=== PATIENT | female | born 1970 | race Caucasian/White ===

== ENCOUNTER 2016-06-06 08:00 | Outpatient (CLI) | payer MEDICAID | END 2016-06-06 23:59 | disposition home or self-care (01) | DX: Z79.891 Long term (current) use of opiate analgesic (principal) ==

== ENCOUNTER 2016-06-11 14:06 | Outpatient (CLI) | payer MEDICAID | END 2016-06-11 14:07 | disposition home or self-care (01) | DX: M19.042 Primary osteoarthritis, left hand (principal); M19.041 Primary osteoarthritis, right hand; M25.532 Pain in left wrist; M25.531 Pain in right wrist ==

== ENCOUNTER 2016-06-12 13:56 | Outpatient (CLI) | payer MEDICAID | END 2016-06-12 13:57 | disposition home or self-care (01) | DX: R20.2 Paresthesia of skin (principal) ==

== ENCOUNTER 2016-09-04 07:58 | Outpatient (CLI) | payer MEDICAID | END 2016-09-04 07:59 | disposition home or self-care (01) | DX: N39.0 Urinary tract infection, site not specified (principal) ==

== ENCOUNTER 2016-09-06 14:11 | Outpatient (CLI) | payer MEDICAID | END 2016-09-06 14:12 | disposition home or self-care (01) | DX: M25.532 Pain in left wrist (principal) ==

== ENCOUNTER 2016-11-28 12:22 | Outpatient (CLI) | payer MEDICAID ==
[2016-11-28 17:36] LABS: BILIRUBIN,URINE NEGATIVE (NEGATIVE)
[2016-11-28 17:42] LABS: WBC,URINE >25 /HPF (0-5)
[2016-11-28 17:43] LABS: UR CULTURE IF IND INDICATED
== END 2016-11-28 12:23 ==
LOC: LAB.R 12:22
PROVIDERS: ATTEND Nurse Practitioner Family
DX: N39.0 Urinary tract infection, site not specified (principal)
CPT/HCPCS: 81001; 87077; 87086

== ENCOUNTER 2016-12-31 14:08 | Outpatient (CLI) | payer MEDICAID ==
[2016-12-31 19:00] LABS: BILIRUBIN,URINE NEGATIVE (NEGATIVE)
[2016-12-31 20:03] LABS: UR CULTURE IF IND NOT INDICATED; WBC,URINE 0-3 /HPF (0-5)
== END 2016-12-31 14:09 | disposition home or self-care (01) ==
LOC: LAB.R 14:08
PROVIDERS: ATTEND Nurse Practitioner Family
DX: N39.0 Urinary tract infection, site not specified (principal)
CPT/HCPCS: 81001; 87086

== ENCOUNTER 2017-01-07 14:02 | Outpatient (CLI) | payer MEDICAID ==
--- NOTE | 2017-01-07 16:04 | XRAY Report ---
THREE VIEW LEFT HAND: 01/07/2017 CLINICAL INDICATION: Pain. FINDINGS: AP, lateral, and oblique views of the left hand are compared to previous films of 06/11/19 17. Mild osteoarthritis in the interphalangeal joints is stable. There is no evidence of acute fracture o r dislocation. No radiopaque foreign body is seen in the soft tissues. IMPRESSION: MILD INTERPHALANGEAL OSTEOARTHRITIS. JOB #: [id number] EXT JOB #:[id number]
--- NOTE | 2017-01-07 16:05 | XRAY Report ---
THREE VIEW LEFT WRIST: 01/07/2017 CLINICAL INDICATION: Osteoarthritis. COMPARISON: 09/06/2016. FINDINGS: AP, lateral, and oblique views of the left wrist demonstrate no evidence of acute fracture or dislocation. The joint spaces are preserved. No radiopaque foreign body is seen in the soft tissu es. IMPRESSION: NORMAL LEFT WRIST, UNCHANGED. JOB #: [id number] EXT JOB #:[id number]
== END 2017-01-07 14:03 | disposition home or self-care (01) ==
LOC: DI.S 14:02
PROVIDERS: ATTEND Nurse Practitioner Family
DX: M19.032 Primary osteoarthritis, left wrist (principal)

== ENCOUNTER 2017-03-07 15:46 | Outpatient (CLI) | payer MEDICAID ==
[2017-03-07 12:47] LABS: BASOPHILS % (AUTO) 0.7 %; EOSINOPHILS # (AUTO) 0.1 10^3/uL (0.0-0.7); EOSINOPHILS % (AUTO) 2.3 %; HGB - HEMOGLOBIN 12.3 g/dL (12.0-16.0); LYMPHOCYTES # (AUTO) 1.6 10^3/uL (1.5-3.5); LYMPHOCYTES % (AUTO) 46.6 %; MEAN CORPUSCULAR HEMOGLOBIN 35.8 pg (27.0-31.0); MEAN CORPUSCULAR HGB CONC 34.1 g/dL (32.0-36.0); MEAN CORPUSCULAR VOLUME 104.9 fL (81.0-99.0); MEAN PLATELET VOLUME 9.6 fL (7.9-10.8); MONOCYTES # (AUTO) 0.3 10^3/uL (0.0-1.0); MONOCYTES % (AUTO) 8.3 %; NEUTROPHILS # (AUTO) 1.5 10^3/uL (1.5-6.6); NEUTROPHILS % (AUTO) 42.1 %; NUCLEATED RED BLOOD CELLS AUTO 0.1 /100WBC; RED BLOOD COUNT 3.43 10^6/uL (4.20-5.40); RED CELL DISTRIBUTION WIDTH 11.8 % (12.0-15.0); UNCORRECTED WHITE BLOOD COUNT 3.5 x10^3/uL; WHITE BLOOD COUNT 3.5 x10^3/uL (4.8-10.8)
[2017-03-07 13:19] LABS: ALBUMIN/GLOBULIN RATIO 1.6 (1.0-2.2); BILIRUBIN,TOTAL 0.4 mg/dL (0.2-1.0); BUN - BLOOD UREA NITROGEN 9 mg/dL (6-20); CALCIUM 8.9 mg/dL (8.5-10.3); CARBON DIOXIDE - CO2 24 mmol/L (21-32); CHLORIDE 108 mmol/L (101-111); CREATININE 0.7 mg/dL (0.4-1.0); GFR - MDRD 89 (>89); GLUCOSE 118 mg/dL (70-100); POTASSIUM 3.2 mmol/L (3.5-5.0); SODIUM 139 mmol/L (135-145); TOTAL PROTEIN 6.6 g/dL (6.7-8.2)
== END 2017-03-07 15:47 | disposition home or self-care (01) ==
LOC: LAB.N 15:46
PROVIDERS: ATTEND Nurse Practitioner Family
DX: I10 Essential (primary) hypertension (principal); R19.7 Diarrhea, unspecified
CPT/HCPCS: 36415; 80053; 84443; 85025

== ENCOUNTER 2017-03-08 10:07 | Outpatient (CLI) | payer MEDICAID ==
[2017-03-08 13:50] LABS: FOLATE 8.96 ng/mL (5.90 - >24.8)
[2017-03-08 13:52] LABS: POTASSIUM 3.1 mmol/L (3.5-5.0)
== END 2017-03-08 10:08 | disposition home or self-care (01) ==
LOC: LAB.N 10:07
PROVIDERS: ATTEND Nurse Practitioner Family
DX: E87.6 Hypokalemia (principal); D53.9 Nutritional anemia, unspecified
CPT/HCPCS: 36415; 82607; 82746; 82977; 84132

== ENCOUNTER 2017-08-29 11:01 | Outpatient (CLI) | payer MEDICAID ==
--- NOTE | 2017-08-29 13:08 | XRAY Report ---
COMPLETE CERVICAL SPINE: 08/29/2017 CLINICAL INDICATION: Neck and back pain. COMPARISON: 10/18/2014. FINDINGS: AP, lateral, oblique, odontoid views of the cervical spine demonstrate normal height and alignment of the vertebral bodies. The disk spaces are preserved. There is no evidence of interval fracture or subluxation. No osseous neural foraminal narrowing is appreciated. IMPRESSION: NORMAL CERVICAL SPINE, UNCHANGED. TD: 08/29/2017 13:07
--- NOTE | 2017-08-29 13:09 | XRAY Report ---
TWO VIEW THORACIC SPINE: 08/29/2017 CLINICAL INDICATION: Back pain. FINDINGS: Frontal and lateral views of the thoracic spine demonstrate mild degenerative disk disease. There is no evidence of compression fracture. No paraspinal hematoma is seen. IMPRESSION: MILD DEGENERATIVE CHANGES, STABLE FROM 03/07/2011. NO EVIDENCE OF COMPRESSION FRACTURE. TD: 08/29/2017 13:08
== END 2017-08-29 11:02 | disposition home or self-care (01) ==
LOC: DI.S 11:01
PROVIDERS: ATTEND Nurse Practitioner Family
DX: M51.34 Other intervertebral disc degeneration, thoracic region (principal)
CPT/HCPCS: 72050; 72070

== ENCOUNTER 2018-07-11 13:52 | Outpatient (CLI) | payer MEDICAID ==
--- NOTE | 2018-07-11 16:30 | XRAY Report ---
Reason: FOREARM PAIN,LEFT,KNEE PAIN,RIGHT,FOOT JOINT PAIN, Procedure Date: 07/11/2018 Accession Number: [id number] / [id number] Procedure: XR - Foot 3 View RT CPT Code: FULL RESULT: EXAM: RIGHT FOOT RADIOGRAPHY EXAM DATE: 07/11/2018 02:19 PM. CLINICAL HISTORY: Foot pain COMPARISON: None. TECHNIQUE: 3 views. FINDINGS: Bones: Normal. No fractures or bone lesions. Joints: Normal. No subluxations. Soft Tissues: Normal. No soft tissue swelling. IMPRESSION: Negative foot radiography. [facility]
--- NOTE | 2018-07-11 16:35 | XRAY Report ---
Reason: FOREARM PAIN,LEFT,KNEE PAIN,RIGHT,FOOT JOINT PAIN, Procedure Date: 07/11/2018 Accession Number: [id number] / [id number] Procedure: XR - Knee 3 View RT CPT Code: FULL RESULT: EXAM: RIGHT KNEE RADIOGRAPHY EXAM DATE: 07/11/2018 01:14 PM. CLINICAL HISTORY: Knee pain COMPARISON: WRIST 3 VIEW LT 11/08/2015 10:23 PM. TECHNIQUE: 3 views. FINDINGS: Bones: Normal. No fractures or bone lesions. Joints: Normal. No effusion. No subluxations. Soft Tissues: Normal. No soft tissue swelling. IMPRESSION: Negative knee radiography. [facility]
--- NOTE | 2018-07-11 17:09 | XRAY Report ---
Reason: FOREARM PAIN,LEFT,KNEE PAIN,RIGHT,FOOT JOINT PAIN, Procedure Date: 07/11/2018 Accession Number: [id number] / [id number] Procedure: XR - Forearm LT CPT Code: FULL RESULT: EXAM: LEFT FOREARM RADIOGRAPHY EXAM DATE: 07/11/2018 02:22 PM. CLINICAL HISTORY: Forearm pain. COMPARISON: FOREARM LT 07/25/2015 10:47 PM. TECHNIQUE: 2 views. FINDINGS: Bones: Normal. No fractures or bone lesions. Joints: Normal. No effusions or subluxations in the visualized wrist or elbow joints. Soft Tissues: Normal. No soft tissue swelling. IMPRESSION: Negative forearm radiography. [facility]
== END 2018-07-11 13:53 | disposition home or self-care (01) ==
LOC: DI 13:52
PROVIDERS: ATTEND Nurse Practitioner Family
DX: M79.632 Pain in left forearm (principal); M25.561 Pain in right knee; M79.671 Pain in right foot

== ENCOUNTER 2019-05-21 13:59 | Outpatient (CLI) | payer MEDICAID ==
--- NOTE | 2019-05-21 15:53 | XRAY Report ---
Reason: WRIST PAIN, LEFT Procedure Date: 05/21/2019 Accession Number: [id number] / [id number] Procedure: XRS - Wrist 3 View LT CPT Code: Final Report FULL RESULT: EXAM: LEFT WRIST RADIOGRAPHY EXAM DATE: 05/21/2019 02:09 PM. CLINICAL HISTORY: Wrist pain, left. COMPARISON: HAND 3 VIEW LT 01/07/2017 2:48 PM. TECHNIQUE: 3 views. FINDINGS: Bones: Normal. No fractures or bone lesions. Joints: Normal. No subluxations. Soft Tissues: Normal. No soft tissue swelling. IMPRESSION: Normal wrist radiography. [facility]
== END 2019-05-21 14:00 | disposition home or self-care (01) ==
LOC: DI.S 13:59
PROVIDERS: ATTEND Registered Nurse
DX: M25.532 Pain in left wrist (principal)

== ENCOUNTER 2020-12-19 16:26 | Outpatient (CLI) | payer MEDICAID | END 2020-12-19 16:27 | disposition home or self-care (01) | LOC: COV 16:26 | PROVIDERS: ATTEND Family Medicine | DX: Z20.822 Contact with and (suspected) exposure to COVID-19 (principal) ==

== ENCOUNTER 2021-08-15 08:00 | Outpatient (CLI) | payer MEDICAID ==
--- NOTE | 2021-08-15 16:40 | XRAY Report ---
PROCEDURE: Ankle 3 View LT INDICATIONS: PAIN IN LEFT ANKLE TECHNIQUE: 3 views of the ankle were acquired. COMPARISON: None FINDINGS: Bones: No fractures or dislocations. Ankle mortise is normally aligned. No suspicious bony lesions . Soft tissues: No tibiotalar joint effusion. Achilles tendon appears normal. IMPRESSION: No fracture. No osseous lesion. If there are persistent symptoms or continued clinical concern for pa thology, then repeat plain film radiographs (7-10 days) or advanced imaging (CT, MR, bone scan) shoul d be considered for further evaluation. Reviewed by: Jennifer Magallon MD, PhD on 08/15/2021 4:38 PM PDT Approved by: Jennifer Magallon MD, PhD on 08/15/2021 4:38 PM PDT Station ID: [id number]
--- NOTE | 2021-08-15 16:41 | XRAY Report ---
PROCEDURE: Foot 3 View LT INDICATIONS: PAIN IN LEFT FOOT TECHNIQUE: 3 views of the foot were acquired. COMPARISON: None FINDINGS: Bones: No fractures or dislocations. No suspicious bony lesions. Soft tissues: No tibiotalar joint effusion. Achilles tendon appears normal. IMPRESSION: No fracture. No osseous lesion. If there are persistent symptoms or continued clinical concern for pa thology, then repeat plain film radiographs (7-10 days) or advanced imaging (CT, MR, bone scan) shoul d be considered for further evaluation. Reviewed by: Jennifer Magallon MD, PhD on 08/15/2021 4:39 PM PDT Approved by: Jennifer Magallon MD, PhD on 08/15/2021 4:39 PM PDT Station ID: [id number]
== END 2021-08-15 23:59 | disposition home or self-care (01) ==
LOC: DI.S 08:00
PROVIDERS: ATTEND Physician Assistant
DX: M79.672 Pain in left foot (principal); M25.572 Pain in left ankle and joints of left foot

== ENCOUNTER 2021-09-05 11:00 | Outpatient (CLI) | payer MEDICAID ==
--- NOTE | 2021-09-05 13:26 | XRAY Report ---
PROCEDURE: Ankle 3 View LT INDICATIONS: ANKLE PAIN TECHNIQUE: 3 views of the ankle were acquired. COMPARISON: 08/15/2021. FINDINGS: Bones: No fractures or dislocations. Ankle mortise is normally aligned. No suspicious bony lesions . Soft tissues: No tibiotalar joint effusion. Achilles tendon appears normal. IMPRESSION: No fracture. No osseous lesion. If there are persistent symptoms or continued clinical c oncern for pathology, then advanced imaging (CT, MR, bone scan) should be considered for further eval uation. Reviewed by: Jennifer Magallon MD, PhD on 09/05/2021 1:25 PM PDT Approved by: Jennifer Magallon MD, PhD on 09/05/2021 1:25 PM PDT Station ID: [id number]
--- NOTE | 2021-09-05 13:28 | XRAY Report ---
PROCEDURE: Foot 3 View LT INDICATIONS: FOOT PAIN TECHNIQUE: 3 views of the foot were acquired. COMPARISON: 08/15/2021. FINDINGS: Bones: No fractures or dislocations. No suspicious bony lesions. Soft tissues: No tibiotalar joint effusion. Achilles tendon appears normal. IMPRESSION: No fracture. No osseous lesion. If there are persistent symptoms or continued clinical concern for pa thology, then advanced imaging (CT, MR, bone scan) should be considered for further evaluation. Reviewed by: Jennifer Magallon MD, PhD on 09/05/2021 1:26 PM PDT Approved by: Jennifer Magallon MD, PhD on 09/05/2021 1:26 PM PDT Station ID: [id number]
== END 2021-09-05 23:59 | disposition home or self-care (01) ==
LOC: DI.WOS 11:00
PROVIDERS: ATTEND Orthopaedic Surgery
DX: M79.672 Pain in left foot (principal); M76.72 Peroneal tendinitis, left leg; M25.572 Pain in left ankle and joints of left foot

== ENCOUNTER 2024-01-13 08:00 | Outpatient (CLI) | payer MEDICAID ==
--- NOTE | 2024-01-13 15:57 | XRAY Report ---
PROCEDURE: Wrist 3+V LT INDICATIONS: LEFT WRIST PAIN TECHNIQUE: 3 views of the wrist were acquired. COMPARISON: None. FINDINGS: Bones: No fractures or dislocations. No suspicious bony lesions. Soft tissues: No suspicious soft tissue calcifications or masses. IMPRESSION: No acute bony abnormality. Reviewed by: Artie Conley MD on 01/13/2024 3:56 PM PDT Approved by: Artie Conley MD on 01/13/2024 3:56 PM PDT Station ID: [id number]
== END 2024-01-13 23:59 | disposition home or self-care (01) ==
LOC: DI.S 08:00
PROVIDERS: ATTEND Registered Nurse
DX: M25.532 Pain in left wrist (principal)